=== PATIENT | female | born 1970 | race Caucasian/White ===

== ENCOUNTER 2018-01-05 17:15 | Emergency (ER) | payer MEDICAID ==
[~2018-01-05] VITALS: Ht 157.5 cm; Wt 79.4 kg
[2018-01-05 17:23] VITALS: BP 118/56
--- NOTE | 2018-01-05 17:27 | NUR ---
PT AMBULATES TO BED 7
--- NOTE | 2018-01-05 17:34 | NUR ---
XRAY AT BEDSIDE
--- NOTE | 2018-01-05 17:45 | NUR ---
PATIENT PRESENTS TO ED WITH PLURETIC CHEST WALL PAIN WITH COUGH . PT STATES . DENIES N/V/D; SKIN IS PINK/WARM/DRY; AAOX4 WITH EVEN AND STEADY GAIT; LUNGS CLEAR BL; HR EVEN AND REGULAR; ; PATIENT STATES PAIN OF 6/10 AT THIS TIME; VSS; PATIENT POSITIONED FOR COMFORT; HOB ELEVATED; BEDRAILS UP X2; BED DOWN. ER MD MADE AWARE OF PT STATUS.
--- NOTE | 2018-01-05 17:46 | NUR ---
X-Ray at bedside.
[2018-01-05 19:30] VITALS: BP 128/72
--- NOTE | 2018-01-05 19:30 | NUR ---
Patient discharged with v/s stable. Written and verbal after care instructions given and explained. Patient alert, oriented and verbalized understanding of instructions. Ambulatory with steady gait. All questions addressed prior to discharge. ID band removed. Patient advised to follow up with PMD. Rx of ZPAK, MUCINEX, ROBITUSSIN given. Patient educated on indication of medication including possible reaction and side effects. Opportunity to ask questions provided and answered.
== END 2018-01-05 19:30 | disposition home or self-care (01) ==
LOC: MED 17:15
DX: J20.9 Acute bronchitis, unspecified (principal); F17.210 Nicotine dependence, cigarettes, uncomplicated
CPT/HCPCS: 71045; 99283; Q0092

== ENCOUNTER 2018-04-28 10:13 | Emergency (ER) | payer MEDICAID ==
[~2018-04-28] VITALS: Ht 157.5 cm; Wt 82.1 kg
[2018-04-28 10:24] VITALS: BP 144/70
--- NOTE | 2018-04-28 10:27 | NUR ---
PT AMBULATES TO BED 2
--- NOTE | 2018-04-28 10:35 | NUR ---
PATIENT PRESENTS TO ED WITH C/O THROAT PAIN, CONGETSION AND BODY ACHES X YESTERDAY. TONSILS IS SWOLLEN AND REDDENED. DENIES SOB; NO DROOLING;PATIENT STATES PAIN OF 10/10 AT THIS TIME;pT TOOK IBUPROFEN BUT OFFER NO RELIEF.PATIENT POSITIONED FOR COMFORT; HOB ELEVATED; BEDRAILS UP X2; BED DOWN. ER MD MADE AWARE OF PT STATUS.
--- NOTE | 2018-04-28 10:53 | NUR ---
Patient being evaluated by physician at bedside.
[2018-04-28] MEDS ORDERED: ALBUTEROL SULFATE/IPRATROPIU 3 ML SOL IH ONE (11:05)
[2018-04-28] MEDS ORDERED: DEXAMETHASONE 10 MG/ML VIAL IM ONE (11:05)
[2018-04-28] MEDS ORDERED: CLINDAMYCIN 600 MG/4 ML VIAL IM ONE (11:05)
[2018-04-28 11:47] VITALS: BP 136/74
--- NOTE | 2018-04-28 11:47 | NUR ---
Patient discharged with v/s stable. Written and verbal after care instructions given and explained. Patient alert, oriented and verbalized understanding of instructions. Ambulatory with steady gait. All questions addressed prior to discharge. ID band removed. Patient advised to follow up with PMD. Rx of promethazine,clindamycin and prednisone given. Patient educated on indication of medication including possible reaction and side effects. Opportunity to ask questions provided and answered.
== END 2018-04-28 11:47 | disposition home or self-care (01) ==
LOC: MED 10:13
DX: J03.90 Acute tonsillitis, unspecified (principal)
CPT/HCPCS: 94640; 96372; 99283; J1100; J3490; J7620